=== PATIENT | male | born 1975 | race African-American/Black ===

== ENCOUNTER 2016-12-17 15:12 | Emergency (ER) | payer SELFPAY ==
[~2016-12-17] VITALS: Ht 177.8 cm; Wt 91.0 kg
[2016-12-17 15:13] VITALS: BP 133/94; PULSE 84; RESP 16; TEMP 98.4; O2SAT 98
[2016-12-17] MEDS ORDERED: ONDANSETRON HCL 4 MG/2 ML VIAL IV PUSH ONE (16:45)
[2016-12-17] MEDS ORDERED: KETOROLAC TROMETHAMINE 30 MG/ML (IVP) VIAL IV PUSH ONE (16:45)
[2016-12-17] MEDS ORDERED: SODIUM CHLOR 0.9% 1000 ML INJ 1,000 ML IV ONE (16:45)
--- NOTE | 2016-12-17 17:07 | PD ---
HPI Chief Complaint: Flank/Kidney Pain Time Seen by Provider: 16:27 Travel History International Travel<30 days: No Contact w/Intl Traveler<30days: No Traveled to known affect area: No History of Present Illness HPI A 41-year-old man who presents to the emergency department complaining of left back and flank pain ongoing for past 3-4 days. She been fairly constant. Worse with movement. He is no some dark urine as well. No rash or evidence of zoster. He has no history of previous similar symptoms. His workup physically demanding job and does a lot of lifting. He otherwise had been feeling generally 1 healthy. No fever or chills. No nausea or vomiting. No other complaints. History Past Medical History Medical History: Denies Significant Hx Social History Tobacco Use: No Allergies-Medications (Allergen,Severity, Reaction): Coded Allergies: No Known Allergies (Unverified , 12/17/16) Review of Systems Except as stated in HPI: all other systems reviewed are Neg Physical Exam Narrative GENERAL: Well-appearing 41-year-old man, no acute distress. SKIN: Focused skin assessment warm/dry. HEAD: Atraumatic. Normocephalic. EYES: Pupils equal and round. No scleral icterus. No injection or drainage. ENT: No nasal bleeding or discharge. Mucous membranes pink and moist. NECK: Trachea midline. No JVD. CARDIOVASCULAR: Regular rate and rhythm. No murmur appreciated. RESPIRATORY: No accessory muscle use. Clear to auscultation. Breath sounds equal bilaterally. GASTROINTESTINAL: Abdomen soft, non-tender, nondistended. Hepatic and splenic margins not palpable. No CVA tenderness percussion. No rebound or guarding. MUSCULOSKELETAL: No obvious deformities. No clubbing. No cyanosis. No edema. NEUROLOGICAL: Awake and alert. No obvious cranial nerve deficits. Motor grossly within normal limits. Normal speech. PSYCHIATRIC: Appropriate mood and affect; insight and judgment normal. Data Data Last Documented VS Vital Signs Date Time Temp Pulse Resp B/P Pulse Ox O2 Delivery O2 Flow Rate FiO2 12/17/16 15:13 98.4 84 16 133/94 98 Orders Urinalysis - C+S If Indicated (12/17/16 16:27) Complete Blood Count With Diff (12/17/16 16:38) Basic Metabolic Panel (Bmp) (12/17/16 16:38) Iv Access Insert/Monitor (12/17/16 16:38) Ct Abd/Pel W/O Iv Contrast (12/17/16 ) Ketorolac Inj (Toradol Inj) (12/17/16 16:45) Ondansetron Inj (Zofran Inj) (12/17/16 16:45) Sodium Chlor 0.9% 1000 Ml Inj (Ns 1000 M (12/17/16 16:45) MDM Medical Decision Making Medical Screen Exam Complete: Yes Emergency Medical Condition: Yes Differential Diagnosis Renal lithiasis, back strain or sprain, zoster, other Narrative Course Medical decision-making 41-year-old man who presents with dark urine and flank pain suggestive of renal lithiasis. He also worsened demanding job and pain is worse with moving the could suggest a back strain or sprain. We'll give Toradol, CT, labs, urine. Patient be sent out the oncoming provider 5 PM to follow-up on results of diagnostic testing. Carlos Carr MD Dec 17, 2016 17:07
--- NOTE | 2016-12-17 17:10 | RADRPT ---
EXAM DATE/TIME: 12/17/2016 16:50 [facility] COMPARISON: No previous studies available for comparison. INDICATIONS : Left flank pain and hematuria for three days. ORAL CONTRAST: No oral contrast ingested. RADIATION DOSE: 10.11 CTDIvol (mGy) MEDICAL HISTORY : None SURGICAL HISTORY : None. ENCOUNTER: Initial ACUITY: 3 days PAIN SCALE: 9/10 LOCATION: Left flank TECHNIQUE: Volumetric scanning of the abdomen and pelvis was performed. Using automated exposure control and ad justment of the mA and/or kV according to patient size, radiation dose was kept as low as reasonably achievable to obtain optimal diagnostic quality images. DICOM format image data is available electro nically for review and comparison. FINDINGS: LOWER LUNGS: The visualized lower lungs are clear. LIVER: Homogeneous density without lesion. There is no dilation of the biliary tree. No calcified gallston es. SPLEEN: Normal size without lesion. PANCREAS: Within normal limits. KIDNEYS: Normal in size and shape. There is no mass, stone, or hydronephrosis. ADRENAL GLANDS: Within normal limits. VASCULAR: There is no aortic aneurysm. BOWEL/MESENTERY: The stomach, small bowel, and colon demonstrate no acute abnormality. There is no free intraperitone al air or fluid. Normal appendix. ABDOMINAL WALL: 17 mm wide umbilical hernia defect with protruding fat noted. RETROPERITONEUM: There is no lymphadenopathy. BLADDER: No wall thickening or mass. REPRODUCTIVE: Within normal limits. INGUINAL: There is no lymphadenopathy or hernia. MUSCULOSKELETAL: No acute bony abnormality demonstrated. 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 Also mild degenerative changes of the lumbar spine. CONCLUSION: 1. No stone, obstruction or other abnormality seen of either kidney. 2. Fat-containing umbilical hernia. Killian Serna MD on December 17, 2016 at 17:03 Board Certified Radiologist. This report was verified electronically.
[2016-12-17 17:18] LABS: BLOOD, URINE NEG (NEG); COMMENT (UR) CULT NOT INDICATED; CULTURE IF INDICATED CULT NOT INDICATED; GLUCOSE,URINE NEG (NEG); KETONE, URINE NEG (NEG); MUCUS URINE FEW /lpf (OCC); NITRITE,URINE NEG (NEG); PH, URINE 6.5 (5.0-8.5); URINE COLOR YELLOW (YELLW/STRAW)
[2016-12-17] MEDS ORDERED: CYCLOBENZAPRINE HCL 10 MG TAB PO ONE (17:30)
[2016-12-17 18:07] LABS: AUTOMATED NEUTROPHIL # 4.3 TH/MM3 (1.8-7.7); BASOPHIL % 0.5 % (0.0-2.0); EOSINOPHIL # 0.1 TH/MM3 (0-0.4); EOSINOPHIL % 1.6 % (0.0-4.0); HEMATOCRIT 43.1 % (39.0-51.0); HEMO FLAGS DIFF FINAL; LYMPH % 33.5 % (9.0-44.0); LYMPHOCYTE # 2.6 TH/MM3 (1.0-4.8); MEAN CELL VOLUME 95.5 FL (80.0-100.0); MEAN CORPUSCULAR HEMOGLOBIN 32.7 PG (27.0-34.0); MEAN CORPUSCULAR HGB CONC 34.2 % (32.0-36.0); NEUT % 55.4 % (16.0-70.0); PLATELET COUNT 216 TH/MM3 (150-450); RED BLOOD COUNT 4.52 MIL/MM3 (4.50-5.90); RED CELL DISTRIBUTION WIDTH 13.9 % (11.6-17.2); WHITE BLOOD COUNT 7.7 TH/MM3 (4.0-11.0)
[2016-12-17 18:23] LABS: BICARBONATE 26.1 MEQ/L (21.0-32.0); POTASSIUM 3.8 MEQ/L (3.5-5.1)
--- NOTE | 2016-12-17 18:37 | PD ---
Physical Exam Narrative Patient signed out to me by Dr. Carr. Please see his documentation for complete chills. Review, patient is a 41-year-old male who has had left-sided back pain since . He says the pain is all over the left side of his back. He also has noticed some dark urine. Exam shows tenderness along the entire left side of the back. There is no spinal tenderness. Data Data Last Documented VS Vital Signs Date Time Temp Pulse Resp B/P Pulse Ox O2 Delivery O2 Flow Rate FiO2 12/17/16 15:13 98.4 84 16 133/94 98 Orders Urinalysis - C+S If Indicated (12/17/16 16:27) Complete Blood Count With Diff (12/17/16 16:38) Basic Metabolic Panel (Bmp) (12/17/16 16:38) Iv Access Insert/Monitor (12/17/16 16:38) Ct Abd/Pel W/O Iv Contrast (12/17/16 ) Ketorolac Inj (Toradol Inj) (12/17/16 16:45) Ondansetron Inj (Zofran Inj) (12/17/16 16:45) Sodium Chlor 0.9% 1000 Ml Inj (Ns 1000 M (12/17/16 16:45) Cyclobenzaprine (Flexeril) (12/17/16 17:30) Labs Laboratory Tests Test 12/17/16 12/17/16 16:30 17:30 Urine Color YELLOW Urine Turbidity CLEAR Urine pH 6.5 Urine Specific [place] 1.025 Urine Protein TRACE mg/dL Urine Glucose (UA) NEG mg/dL Urine Ketones NEG mg/dL Urine Occult Blood NEG Urine Nitrite NEG Urine Bilirubin NEG Urine Urobilinogen 2.0 MG/DL Urine Leukocyte Esterase NEG Urine RBC 1 /hpf Urine WBC 1 /hpf Urine Mucus FEW /lpf Microscopic Urinalysis Comment CULT NOT INDICATED White Blood Count 7.7 TH/MM3 Red Blood Count 4.52 MIL/MM3 Hemoglobin 14.8 GM/DL Hematocrit 43.1 % Mean Corpuscular Volume 95.5 FL Mean Corpuscular Hemoglobin 32.7 PG Mean Corpuscular Hemoglobin 34.2 % Concent Red Cell Distribution Width 13.9 % Platelet Count 216 TH/MM3 Mean Platelet Volume 8.0 FL Neutrophils (%) (Auto) 55.4 % Lymphocytes (%) (Auto) 33.5 % Monocytes (%) (Auto) 9.0 % Eosinophils (%) (Auto) 1.6 % Basophils (%) (Auto) 0.5 % Neutrophils # (Auto) 4.3 TH/MM3 Lymphocytes # (Auto) 2.6 TH/MM3 Monocytes # (Auto) 0.7 TH/MM3 Eosinophils # (Auto) 0.1 TH/MM3 Basophils # (Auto) 0.0 TH/MM3 CBC Comment DIFF FINAL Differential Comment Sodium Level 141 MEQ/L Potassium Level 3.8 MEQ/L Chloride Level 109 MEQ/L Carbon Dioxide Level 26.1 MEQ/L Anion Gap 6 MEQ/L Blood Urea Nitrogen 12 MG/DL Creatinine 1.14 MG/DL Estimat Glomerular Filtration 86 ML/MIN Rate Random Glucose 83 MG/DL Calcium Level 8.3 MG/DL MDM Supervised Visit with ED: No Narrative Course CT abdomen and pelvis shows an umbilical hernia containing fat. There are no other acute abnormalities. Patient has no abdominal tenderness at this time. Hernia is reducible. Patient advised of the hernia, advised follow-up with general surgery. Advised to drink plenty of fluids and take ibuprofen as needed for pain. Advised to return to the ED as needed for any worsening symptoms. Advised follow-up with a primary care doctor. Diagnosis Primary Impression: Back pain Qualified Code: M54.5 - Acute left-sided low back pain without sciatica Patient Instructions: Back Pain (ED), General Instructions Additional Instruction: Take ibuprofen as needed for pain. In plenty of fluids. Follow up with a primary care doctor. Return to the emergency department as needed for any worsening symptoms. Disposition: 01 DISCHARGE HOME Condition: Stable Alanis Simmons MD Dec 17, 2016 18:37
== END 2016-12-17 19:05 | disposition home or self-care (01) ==
LOC: NEPD 15:12
DX: M54.5 Low back pain (principal)
CPT/HCPCS: 74176; 80048; 81001; 85025; 96361; 96374; 96375; 99285; J1885; J2405; J7030